=== PATIENT | female | born 2000 | race Caucasian/White ===

== ENCOUNTER 2021-09-21 11:11 | Emergency (ER) | payer SELFPAY ==
--- NOTE | ~2021-09-21 | XR_ITS ---
EXAMINATION: XR chest 2V DATE: 09/21/2021 11:36 INDICATION: Post-COVID fever and cough TECHNIQUE: PA and lateral views of the chest were obtained. COMPARISON: None FINDINGS: The lungs are clear with no focal airspace opacities, pulmonary edema, pleural effusion or pneumothor ax. The cardiomediastinal silhouette is normal. Presternal small dermal implant. Visualized bones and soft tissues are unremarkable. IMPRESSION: 1. Normal chest radiograph. Reviewed, dictated and finalized at location A. IMPRESSION: 1. Normal chest radiograph.
[2021-09-21 11:20] VITALS: BP 137/75; PULSE 112; RESP 16; TEMP 37.1; O2SAT 98
--- NOTE | 2021-09-21 11:26 | ED.URI ---
HPI - URI/Sore Throat General Chief Complaint: Upper Respiratory Infection Stated Complaint: Fever/Cough Time Seen by Provider: 09/21/21 11:31 Source: patient and RN notes reviewed Mode of arrival: ambulatory Limitations: no limitations History of Present Illness HPI Narrative: 21-year-old female presented for complaint of cough, fevers, headache and fatigue over the last 3 days. Also endorses nausea and diarrhea. Endorses it feels hard to breathe she has a yellow sputum. States fever is 100-103. She gave her self IV fluids and has been taking Tylenol. She states that she had COVID 2 weeks ago and only had symptoms for about 3 days. She states the symptoms are worse. Denies cp, wheezing, vomiting. MD elicited complaint: cough Related Data Home Medications Medication Instructions Recorded Confirmed sertraline 50 mg tablet 50 mg PO DAILY 09/21/21 09/21/21 Allergies Allergy/AdvReac Type Severity Reaction Status Date / Time No Known Allergies Allergy Verified 09/21/21 11:22 Review of Systems Review of Systems: ROS negative except as in HPI Exam Narrative: GENERAL: Ill-appearing, nontoxic EYES: conjunctivae clear ENT: Mucous membranes moist. TM pearly souza with dull light reflex bilaterally; no tragal tenderness. Oropharynx erythematous without lesions or exudate, no drooling, no hoarseness, no trismus, uvula midline. CHEST: Clear to auscultation, breath sounds equal. HEART: Regular rate and rhythm. SKIN: Warm, dry, no rash. NEURO: Alert and oriented x3. PSYCH: Normal mood and affect Course Course Emergency Course: Patient is aware of diagnosis, understands and agrees to treatment plan. Anticipatory guidance given. Patient agrees to follow-up as directed and is aware of reasons to seek care at the emergency department. Portions of this record may have been created with voice recognition software Level of Care: Express Care Visit Vital Signs Vital signs: Vital Signs Temperature 98.7 F 09/21/21 11:20 Pulse Rate 112 H 09/21/21 11:20 Respiratory Rate 16 09/21/21 11:20 Blood Pressure 137/75 09/21/21 11:20 Pulse Oximetry 98 09/21/21 11:20 Oxygen Delivery Room Air 09/21/21 11:20 Temperature 98.7 F 09/21/21 11:29 Pulse Rate 112 H 09/21/21 11:29 Respiratory Rate 16 09/21/21 11:29 Blood Pressure 137/75 09/21/21 11:29 Pulse Oximetry 98 09/21/21 11:29 Oxygen Delivery Room Air 09/21/21 11:29 reviewed MDM - URI/Sore Throat MDM Narrative Medical decision making narrative: CXR reviewed with pt. Advised supportive measures and signs/symptoms to go to the ER. Pt is appropriate for outpt treatment and f/u. 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 COMPARISON: None FINDINGS: The lungs are clear with no focal airspace opacities, pulmonary edema, pleural effusion or pneumothorax. The cardiomediastinal silhouette is normal. Presternal small dermal implant. Visualized bones and soft tissues are unremarkable. IMPRESSION: 1. Normal chest radiograph. Discharge Plan Discharge Clinical Impression: Viral infection Patient Disposition: Home, Self-Care Condition: Stable Instructions: Antibiotic Form, Acute Cough (ED) Additional Instructions: Chest xray normal. Recommend Flonase spray and Zyrtec (or Claritin/Chen) over the counter Cough syrup may cause drowsiness; avoid driving or take it at night time. Tylenol 1000mg every 8 hours as needed for pain Symptomatic treatment includes: rest, fluids, and increase hum
[2021-09-21 11:29] VITALS: BP 137/75; PULSE 112; RESP 16; TEMP 37.1; O2SAT 98
== END 2021-09-21 12:01 | disposition home or self-care (01) ==
PROVIDERS: Emergency Provider Nurse Practitioner Family
DX: B34.9 Viral infection, unspecified (principal); Z86.16 Personal history of COVID-19
CPT/HCPCS: 71046; 99213; G0463